=== PATIENT | male | born 1990 | race Caucasian/White ===

== ENCOUNTER 2018-07-12 21:28 | Emergency (ER) | payer OTHER, BC ==
[2018-07-12] MEDS: LORAZEPAM 1 MG TAB PO (21:47)
== END 2018-07-12 22:53 | disposition home or self-care (01) ==
LOC: E/R 21:28
DX: F41.0 Panic disorder [episodic paroxysmal anxiety] (principal); F17.210 Nicotine dependence, cigarettes, uncomplicated; I10 Essential (primary) hypertension
CPT/HCPCS: 93005; 99283-25; Z7502